=== PATIENT | female | born 1980 ===

== ENCOUNTER 2022-08-05 07:15 | Inpatient (IN) | payer OTHER ==
[~2022-08-05] VITALS: Ht 157.5 cm; Wt 95.3 kg
[2022-08-05] MEDS ORDERED: LOSART PO (08:09)
[2022-08-05] MEDS ORDERED: OMEPRAZOLE20 M2 PO (08:27)
[2022-08-07] MEDS ORDERED: COZAAR25 MG PO (16:01)
== END 2022-08-10 13:58 | disposition home or self-care (01) | DRG 743 ==
LOC: ADM 07:15 → EDSTATUS 07:15 → OB/GYN 08-07 07:15 → O/R 08-07 08:37 → OB/GYN 08-07 08:37
PROVIDERS: ADMIT Obstetrics & Gynecology; ATTEND Obstetrics & Gynecology
PROC: 0UT70ZZ Resection of Bilateral Fallopian Tubes, Open Approach (ICD-10-PCS; 2022-08-07)
PROC: 0UB00ZZ Excision of Right Ovary, Open Approach (ICD-10-PCS; 2022-08-07)
PROC: 0DNW0ZZ Release Peritoneum, Open Approach (ICD-10-PCS; 2022-08-07)
PROC: 0UT90ZZ Resection of Uterus, Open Approach (ICD-10-PCS; principal; 2022-08-07 09:00)
DX: D25.9 Leiomyoma of uterus, unspecified (principal); N84.1 Polyp of cervix uteri; N83.01 Follicular cyst of right ovary; Z20.822 Contact with and (suspected) exposure to COVID-19; N73.6 Female pelvic peritoneal adhesions (postinfective)

== ENCOUNTER → 2022-10-10 | Outpatient (CLI) | payer OTHER ==
[~2022-10-10] MED LIST: COZAAR25 MG PO; LOSART PO; OMEPRAZOLE20 M2 PO
== END | disposition home or self-care (01) ==
LOC: SONOGRAMA 11:57
PROVIDERS: ATTEND Pathology Anatomic Pathology & Clinical Pathology
DX: E04.2 Nontoxic multinodular goiter (principal)